=== PATIENT | female | born 1960 | race Caucasian/White ===

== ENCOUNTER 2017-05-14 16:35 | Emergency (ER) | payer BC ==
[2017-05-14 16:51] VITALS: BP 126/66
[2017-05-14] MEDS ORDERED: Tetan/Diph/Pertus SYR(Tdap)* 0.5 ML SYR(BOOSTRIX) use SYR IM ONE (17:04)
--- NOTE | 2017-05-14 17:04 | UC ---
Laceration HPI - HPI Summary HPI Summary: small abrasion on right thigh, happened earlier today on [address] [place], washed well here to update tetanus vaccine - History Of Current Complaint Chief Complaint: UCLaceration Stated Complaint: MINOR CUT TETNAS Time Seen by Provider: 05/14/17 17:15 Hx Obtained From: Patient Hx Last Menstrual Period: menopause Laceration Location: Thigh - right Mechanism Of Injury: Sharp Trauma Onset/Duration: Sudden Onset, Lasting Hours, Still Present Severity: Mild Pain Intensity: 0 Aggravating Factors: Nothing - Allergies/Home Medications Allergies/Adverse Reactions: Allergies Allergy/AdvReac Type Severity Reaction Status Date / Time No Known Allergies Allergy Verified 05/14/17 16:51 Home Medications: Home Medications NK [No Home Medications Reported] 05/14/17 [History Confirmed 05/14/17] PMH/Surg Hx/FS Hx/Imm Hx Previously Healthy: Yes - Surgical History Surgical History: Yes Surgery Procedure, Year, and Place: eye surgery as a child TO CORRECT CROSSED EYES SEVERAL TIMES - Family History Known Family History: Negative: Hypertension, Diabetes - Social History Occupation: Employed Full-time Lives: With Family Alcohol Use: Daily Substance Use Type: None Smoking Status (MU): Former Smoker - Immunization History Most Recent Tetanus Shot: more then 10 yrs Review of Systems Constitutional: Negative Skin: Other - 5 cm superficial abrasion on right thigh Eyes: Negative ENT: Negative Respiratory: Negative Cardiovascular: Negative Gastrointestinal: Negative Genitourinary: Negative Motor: Negative Neurovascular: Negative Musculoskeletal: Negative Neurological: Negative Psychological: Negative All Other Systems Reviewed And Are Negative: Yes Physical Exam Triage Information Reviewed: Yes Appearance: Well-Appearing, No Pain Distress, Well-Nourished Vital Signs: Initial Vital Signs Temp 98.0 F 05/14/17 16:48 Pulse 78 05/14/17 16:48 Resp 18 05/14/17 16:48 BP 126/66 05/14/17 16:48 Pulse Ox 100 05/14/17 16:48 Vital Signs Reviewed: Yes Eye Exam: Normal Eyes: Positive: Conjunctiva Clear ENT Exam: Normal ENT: Positive: Normal ENT inspection, Hearing grossly normal. Negative: Nasal congestion, Nasal drainage, Trismus, Muffled/hoarse voice Dental Exam: Normal Neck exam: Normal Neck: Positive: Supple, Nontender Respiratory Exam: Normal Respiratory: Positive: No respiratory distress, No accessory muscle use Cardiovascular Exam: Normal Cardiovascular: Positive: Pulses Normal, Brisk Capillary Refill Musculoskeletal Exam: Normal Musculoskeletal: Positive: Strength Intact, ROM Intact Neurological Exam: Normal Neurological: Positive: Alert, Muscle Tone Normal Psychological Exam: Normal Skin Exam: Other Skin: Positive: Other - superficial abrasion Laceration Course/Dx - Course/Dx Course Of Treatment: soap and water wash, up date tetanus, follow with pcp prn - Differential Dx - Laceration/Wound Differental Diagnoses: Cellulitis, Healing Wound, Laceration Provider Diagnoses: Abrasion right thigh, up date tetanus Discharge - Discharge Plan Condition: Stable Disposition: HOME Patient Education Materials: Diphtheria/Acellular Pertussis/Tetanus Booster Vaccine (By injection), Abrasion (ED) Referrals: Romeo Larsen MD [Primary Care Provider] - If Needed
== END 2017-05-14 17:18 | disposition home or self-care (01) ==
LOC: UCEAST 16:35
DX: S70.311A Abrasion, right thigh, initial encounter (principal); W27.1XXA Contact with garden tool, initial encounter; Y92.9 Unspecified place or not applicable
CPT/HCPCS: 90471; 90715; 99211; G0463